=== PATIENT | male | born 2005 | race Caucasian/White ===

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

== ENCOUNTER 2024-06-18 21:52 | Emergency (ER) | payer MEDICAID ==
[2024-06-18 22:11] VITALS: BP 127/66; PULSE 59
[2024-06-18] MEDS: Bacitracin Oint 1 GM U/D Packet TOP ONE (22:39)
[2024-06-18] MEDS: Lidocaine 1% 5 ML VIAL INJECT ONE (22:39)
== END 2024-06-18 23:02 | disposition home or self-care (01) ==
LOC: JP.ED 21:52
DX: S91.312A Laceration without foreign body, left foot, initial encounter (principal); W22.8XXA Striking against or struck by other objects, initial encounter; Z88.9 Allergy status to unspecified drugs, medicaments and biological substances
CPT/HCPCS: 12002; 99282; 99283

== ENCOUNTER → 2025-04-04 | Day surgery (SDC) | payer MEDICAID ==
[~2025-04-04] MED LIST: Bacitracin Oint 1 GM U/D Packet TOP ONE; Dexamethasone 4 MG/ML SDV ONE; Glycopyrrolate 0.2 MG/ML 5 ML MDV ONE; Lidocaine 1% with EPINEPHrine 1:100,000 50 ML MDV ONE; Naloxone 0.4 MG/ML SDV IVPUSH PRN; Ondansetron 4 MG/2 ML SDV ONE; Propofol 200 MG/20 ML SDV ONE; Succinylcholine 200 MG/10 ML MDV ONE; fentaNYL 250 MCG/5 ML SDV ONE
[2025-04-04 09:52] LABS: BASOPHILS ABSOLUTE AUTO 0.03 K/uL (0.00-0.10); BASOPHILS PERCENT AUTO 0.4 % (0.1-1.3); EOSINOPHILS ABSOLUTE AUTO 0.08 K/uL (0.00-0.40); EOSINOPHILS PERCENT AUTO 1.1 % (0.0-5.4); IMMATURE GRAN ABSOLUTE AUTO 0.03 K/uL (0.00-0.23); IMMATURE GRAN PERCENT AUTO 0.4 % (0.0-0.7); LYMPHOCYTES ABSOLUTE AUTO 2.47 K/uL (0.8-3.3); LYMPHOCYTES PERCENT AUTO 34.7 % (11.4-47.7); MONOCYTES ABSOLUTE AUTO 0.48 K/uL (0.20-0.90); MONOCYTES PERCENT AUTO 6.7 % (3.3-12.6); NEUTROPHILS ABSOLUTE AUTO 4.03 K/uL (1.0-7.6); NEUTROPHILS PERCENT AUTO 56.7 % (40.0-78.1); PLATELET COUNT,PLT 302 K/uL (130-375); RED BLOOD CELL COUNT 5.93 M/uL (4.14-5.76); WHITE BLOOD CELL COUNT,WBC 7.1 K/uL (3.2-11.0)
[2025-04-04] MEDS: Ondansetron 4 MG/2 ML SDV IVPUSH ONE ×2 (09:59→14:17)
[2025-04-04 10:10] LABS: A/G RATIO 1.5 (1.2-2.2); ALANINE AMINOTRANSFERASE,ALT 28 U/L (12-78); ASPARTATE AMNIOTRANSFERASE,AST 23 U/L (15-37); BILIRUBIN TOTAL 3.4 mg/dL (0.2-1.0); BLOOD UREA NITROGEN,BUN 17 mg/dL (7-18); CARBON DIOXIDE,CO2 24 mmol/L (21-32); CHLORIDE,CL 105 mmol/L (100-108); CREATINE KINASE,CK 319 U/L (39-308); CREATININE 1.0 mg/dL (0.8-1.3); ESTIMATED GFR 111 mL/min (>60); GLUCOSE RANDOM 141 mg/dL (74-106); POTASSIUM,K 3.4 mmol/L (3.6-5.2); PROTEIN TOTAL,TP 8.0 g/dL (6.4-8.2); SODIUM,NA 142 mmol/L (140-148)
[2025-04-04] MEDS: Iopamidol 612 MG/ML 100 ML Bottle IV SCH (10:35)
[2025-04-04] MEDS: Sodium Chloride 0.9% 10 ML Syringe FLUSH PRN (10:35)
[2025-04-04] MEDS: Lidocaine/Epineph/Tetracaine 3 ML Syringe TOP ONE (11:07)
[2025-04-04] MEDS: Lidocaine 1% with EPINEPHrine 1:100,000 20 ML MDV INJECT ONE (11:26)
[2025-04-04] MEDS: Diphtheria,Pertussis(Acell),Tetanus Vaccine 0.5 ML Syringe IM ONE (12:17)
[2025-04-04 12:39] LABS: APPEARANCE,URINE CLEAR (CLEAR); GLUCOSE,URINE NEGATIVE (NEGATIVE); OCCULT BLOOD,URINE NEGATIVE (NEGATIVE)
[2025-04-04 12:41] LABS: AMPHETAMINES SCREEN, URINE NEGATIVE (NEGATIVE); METHAMPHETAMINES SCREEN, URINE NEGATIVE (NEGATIVE)
[2025-04-04 12:42] LABS: METHADONE SCREEN, URINE NEGATIVE (NEGATIVE); OXYCODONE SCREEN,URINE NEGATIVE (NEGATIVE); PROPOXYPHENE SCREEN,URINE NEGATIVE (NEGATIVE); THC SCREEN,URINE 50 NG/ML PRESUMPTIVE POSITIVE (NEGATIVE)
[2025-04-04 12:47] LABS: SQUAMOUS EPITHELIAL CELLS,UR NOT SEEN /HPF; UROTHELIAL CELLS,URINE NOT SEEN /HPF
[2025-04-04] MEDS: Bacitracin Oint 1 GM U/D Packet ONE (13:12)
[2025-04-04] MEDS: Bupivacaine 0.25%/EPINEPHrine 1:200,000 30 ML SDV ONE (13:14)
[2025-04-04 14:08] VITALS: BP 132/77; PULSE 70
== END ==
LOC: JP.ED 09:38 → JP.SDS 11:33
PROVIDERS: ATTEND Surgery
DX: S41.112A Laceration without foreign body of left upper arm, initial encounter (principal); Z88.5 Allergy status to narcotic agent; W25.XXXA Contact with sharp glass, initial encounter
CPT/HCPCS: 00400; 12002; 12014; 36415; 70450; 71260; 72125; 73060; 74177; 76377; 80053; 80305; 80307; 81001; 82550; 85025; 90715; 96361; 96365; 96375; 96376; 99285; A9270; J0330; J0690; J1100; J1171; J1596; J2004; J2405; J2704; J2710; J3010; J7030; Q9967; 93010; 99284; J0665; J3490